=== PATIENT | male | born 1985 | race Caucasian/White ===

== ENCOUNTER → 2019-12-24 | Emergency (ER) | payer SELFPAY ==
[~2019-12-24] VITALS: Ht 175.3 cm; Wt 75.0 kg
[2019-12-24 12:05] VITALS: BP 108/62
== END | disposition home or self-care (01) ==
LOC: EMS 12:21
DX: R51 Headache (principal); Z53.21 Procedure and treatment not carried out due to patient leaving prior to being seen by health care provider

== ENCOUNTER 2020-08-15 21:55 | Emergency (ER) | payer SELFPAY | END 2020-08-15 22:00 | disposition left against medical advice (07) | LOC: EMS 22:00 | DX: S60.445A External constriction of left ring finger, initial encounter (principal); F17.210 Nicotine dependence, cigarettes, uncomplicated; F12.90 Cannabis use, unspecified, uncomplicated; W49.04XA Ring or other jewelry causing external constriction, initial encounter; Y93.89 Activity, other specified; Y92.89 Other specified places as the place of occurrence of the external cause; Y99.8 Other external cause status | CPT/HCPCS: 99283; 99284 ==